=== PATIENT | female | born 1970 | race African-American/Black ===

== ENCOUNTER 2016-09-19 08:01 | Emergency (ER) | payer OTHER ==
[2016-09-19 08:08] VITALS: BP 124/83; PULSE 84; TEMP 98.3; BMI 23.3
[2016-09-19] MEDS ORDERED: ACETAMINOPHEN 500 MG TABLET (FP) PO ONE (08:31)
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
== END 2016-09-19 09:08 | disposition home or self-care (01) ==
LOC: JERFT 08:01
DX: S39.92XA Unspecified injury of lower back, initial encounter (principal); V49.49XA Driver injured in collision with other motor vehicles in traffic accident, initial encounter; Y92.488 Other paved roadways as the place of occurrence of the external cause; Y99.8 Other external cause status
CPT/HCPCS: 99281-25